=== PATIENT | female | born 1940 | race Caucasian/White ===

== ENCOUNTER → 2022-09-19 | Outpatient (CLI) | payer MEDICARE ==
[~2022-09-19] MED LIST: CLON1TAB12 PO; FLUT16H NS; FLUT1DIS4 IH; LEVO175T9 PO; LIOT25TA12 PO; MONT-39 PO; PRAS1TAB4 PO; [UNRECOGNIZED DRUG - OTHER] TP
== END | disposition home or self-care (01) ==
LOC: SHCH 08:07
PROVIDERS: ATTEND Internal Medicine Cardiovascular Disease
DX: I35.8 Other nonrheumatic aortic valve disorders (principal); I31.39 Other pericardial effusion (noninflammatory); E78.5 Hyperlipidemia, unspecified; I74.09 Other arterial embolism and thrombosis of abdominal aorta
CPT/HCPCS: 93306; 93978

== ENCOUNTER → 2022-09-20 | Outpatient (CLI) | payer MEDICARE ==
[~2022-09-20] MED LIST changes: +REGADENOSON 0.4 MG/5 ML PF SYG IVP SCH
== END | disposition home or self-care (01) ==
LOC: SHCH 07:38
PROVIDERS: ATTEND Internal Medicine Cardiovascular Disease
DX: I25.119 Atherosclerotic heart disease of native coronary artery with unspecified angina pectoris (principal); R00.2 Palpitations
CPT/HCPCS: 78452; 96374; 93017; J2785; A9500 ×2

== ENCOUNTER 2024-12-28 06:19 | Day surgery (SDC) | payer MEDICARE ==
[2024-12-28] VITALS (12 sets, daily range): BP systolic 115–162; BP diastolic 55–79; PULSE 62–75; RESP 15–20; TEMP 97.1–97.4
[~2024-12-28] VITALS: Ht 170.2 cm; Wt 54.4 kg
[~2024-12-28 06:19] MED LIST changes: +CLON0.5T23 PO; -CLON1TAB12 PO; -FLUT16H NS; -FLUT1DIS4 IH; +GABAPENTIN PO; -LEVO175T9 PO; -LIOT25TA12 PO; -MONT-39 PO; -PRAS1TAB4 PO; -REGADENOSON 0.4 MG/5 ML PF SYG IVP SCH; +TRAMADOL PO; -[UNRECOGNIZED DRUG - OTHER] TP
[2024-12-28] MEDS: 0.9%NACL 1000ML 1,000 ML IV ONE (07:39)
[2024-12-28] MEDS ORDERED: LIDOCAINE HCL 1% 20 ML VIAL ONE (08:21)
[2024-12-28] MEDS ORDERED: proPOFol 10 MG/ML 20ML VIAL IV ONE (08:21)
== END 2024-12-28 09:47 | disposition home or self-care (01) ==
LOC: DAH 06:19 → ENDO 06:19
PROVIDERS: ATTEND Surgery
DX: Z12.11 Encounter for screening for malignant neoplasm of colon (principal); K62.1 Rectal polyp; Z88.0 Allergy status to penicillin; Z86.0100 Personal history of colon polyps, unspecified; J43.9 Emphysema, unspecified; Z90.710 Acquired absence of both cervix and uterus; Z96.641 Presence of right artificial hip joint; Z79.899 Other long term (current) drug therapy
CPT/HCPCS: 45380; J7030; J2704; A4620; A4215; J3490